=== PATIENT | female | born 1980 | race Caucasian/White ===

== ENCOUNTER 2021-05-13 10:14 | Emergency (ER) | payer OTHER, SELFPAY ==
--- NOTE | ~2021-05-13 | XR_ITS ---
EXAMINATION: XR HIP, LEFT CLINICAL INFORMATION: Fall. Pain. COMPARISON: None TECHNIQUE: Two views of the left hip and one view of the pelvis. FINDINGS: Bone alignment is normal. No fracture or dislocation is seen. The hip joints are normal. Bones of the pelvis are normal. Soft tissues are normal. XR/XR hip LT w [id number] IMPRESSION: Normal left hip.
--- NOTE | ~2021-05-13 | XR_ITS ---
EXAMINATION: XR SHOULDER, LEFT CLINICAL INFORMATION: Fall, trauma, pain COMPARISON: None TECHNIQUE: Left shoulder is imaged in 3 views. FINDINGS: There is a nondisplaced fracture involving the greater tuberosity proximal humerus, possibly comminuted. There is no distraction or displacement. No dislocation. The remainder of the bony structures appear intact. The acromioclavicular alignment is normal. The glenohumeral joint is unremarkable. No visible rotator cuff calcifications. Left lung apex is clear. No pneumothorax or pleural reaction. XR/XR shoulder LT min 2V IMPRESSION: Nondisplaced fracture involving the greater tuberosity proximal humerus, possibly comminuted.
--- NOTE | ~2021-05-13 | XR_ITS ---
EXAMINATION: LEFT ANKLE AND LEFT FOOT X-RAYS CLINICAL INFORMATION: Pain and swelling after fall COMPARISON: None TECHNIQUE: 3 views of the left foot and 3 views of the left ankle FINDINGS: Left foot: Bone alignment is normal. No fracture or dislocation is seen. Joint spaces are normal. Soft tissues are normal. Left ankle: Bone alignment is normal. No fracture or dislocation is seen. The ankle mortise is normal. There is lateral soft tissue swelling. XR/XR foot LT min 3V IMPRESSION: No fracture or dislocation seen. Lateral soft tissue swelling over the ankle.
--- NOTE | ~2021-05-13 | XR_ITS ---
EXAMINATION: LEFT ANKLE AND LEFT FOOT X-RAYS CLINICAL INFORMATION: Pain and swelling after fall COMPARISON: None TECHNIQUE: 3 views of the left foot and 3 views of the left ankle FINDINGS: Left foot: Bone alignment is normal. No fracture or dislocation is seen. Joint spaces are normal. Soft tissues are normal. Left ankle: Bone alignment is normal. No fracture or dislocation is seen. The ankle mortise is normal. There is lateral soft tissue swelling. XR/XR ankle LT min 3V IMPRESSION: No fracture or dislocation seen. Lateral soft tissue swelling over the ankle.
--- NOTE | 2021-05-13 11:45 | ED.FALL ---
HPI - Fall General Chief Complaint: Fall <CECI Currie - Last Filed: 05/13/21 11:49> Stated Complaint: l ankle and arm inj fall <CECI Currie - Last Filed: 05/13/21 11:49> Time Seen by Provider: 05/13/21 11:45 <CECI Currie - Last Filed: 05/13/21 11:49> Source: patient <Lana Pierce DO - Last Filed: 05/13/21 14:01> Mode of arrival: ambulatory <Lana Pierce DO - Last Filed: 05/13/21 14:01> Limitations: no limitations <Lana Pierce DO - Last Filed: 05/13/21 14:01> History of Present Illness MD complaint: fall <Lana Pierce DO - Last Filed: 05/13/21 14:01> Onset (ago): minute(s) (prior to arrival) <Lana Pierce DO - Last Filed: 05/13/21 14:01> Fall from: standing <Lana Pierce DO - Last Filed: 05/13/21 14:01> Fall witnessed: yes, by family <Lana Pierce DO - Last Filed: 05/13/21 14:01> Place fall occurred: home <Lana Pierce DO - Last Filed: 05/13/21 14:01> Loss of consciousness: none <Lana Pierce DO - Last Filed: 05/13/21 14:01> Prolonged down time: no <Lana Pierce DO - Last Filed: 05/13/21 14:01> Symptoms prior to fall: other (stood up and had been sitting her left foot was asleep and she fell) <Lana Pierce DO - Last Filed: 05/13/21 14:01> Context: tripped/slipped (let arm caught on counter) <Lana Pierce DO - Last Filed: 05/13/21 14:01> Location of injury - extremities: left: shoulder (dominant hand) and ankle <Lana Pierce DO - Last Filed: 05/13/21 14:01> Severity: moderate <Lana Pierce DO - Last Filed: 05/13/21 14:01> Quality: aching and throbbing <DO Beatrice Hough Last Filed: 05/13/21 14:01> Associated symptoms (after fall): other (shoulder pain and l ankle pain) <DO Beatrice Hough Last Filed: 05/13/21 14:01> Related Data Home Medications: Previous Rx's Medication Instructions Recorded cyclobenzaprine 10 mg tablet 10 mg PO TID PRN #14 tab 05/13/21 ibuprofen 600 mg tablet 600 mg PO Q6H PRN #30 tab 05/13/21 lidocaine 4 % topical patch 1 patch TOPICAL DAILY PRN #10 ea 05/13/21 <CECI Currie Last Filed: 05/13/21 11:49> Allergies/Adverse Reactions: Allergies Allergy/AdvReac Type Severity Reaction Status Date / Time Sulfa (Sulfonamide Allergy Unknown UNKNOWN Unverified 02/09/20 15:35 Antibiotics) peach AdvReac Unknown UNKNOWN Unverified 02/09/20 15:35 plum AdvReac Unknown UNKNOWN Unverified 02/09/20 15:35 strawberry AdvReac Unknown UNKNOWN Unverified 02/09/20 15:35 raw fruits and veg Allergy Unknown hives Uncoded 09/20/19 00:00 tree nuts, tree and pit Allergy Unknown hives Uncoded 09/20/19 00:00 fruits <CECI uCrrie Last Filed: 05/13/21 11:49> Review of Systems Review of Systems: Constitutional : No Fever, No Chills ENT/Mouth : No Ear Pain, No Hoarseness, No sore throat Eyes: No Eye Pain, No Swelling, No Redness, No Foreign Body Cardiovascular : No Chest Pain, No SOB Respiratory : No Cough, No Dyspnea Gastrointestinal : No Nausea, No Vomiting, No Diarrhea, No abdominal Pain Genitourinary : No Dysuria, No Hematuria Musculoskeletal : positive joint pain, No Myalgias, No Joint Swelling Skin : No Skin lacerations, No rash Neuro : No Weakness, No Numbness, No Loss of Consciousness, No Dizziness, No Headache Psych : No Anxiety/Panic, No Depression Heme/Lymph: no easy bruising, no Lymphadenopathy Endocrine : No Polyuria, No Polydipsia All other systems reviewed and are negative <DO Beatrice Hough Last Filed: 05/13/21 14:01> [facility] Past Medical History Medical History: Medical History Umbilical hernia <CECI Currie - Last Filed: 05/13/21 11:49> Social History Social History: Social History (Updated 05/13/21 @ 13:03 by Lana Pierce DO) Patient Tobacco Use Status: Never used Tobacco Advance Directives: No Advance Directives Information Provided: No <CECI Currie - Last Filed: 05/13/21 11:49> Physical Exam Vital Signs: Vital Signs: Last Vital Signs Temp 98.0 F 05/13/21 11:47 Pulse 79 05/13/21 11:47 Resp 18 05/13/21 11:47 BP 153/89 H 05/13/21 11:47 Pulse Ox 99 05/13/21 11:47 BMI result Body Mass Index 39.5 <CECI Currie - Last Filed: 05/13/21 11:49> Vital Signs: Last Vital Signs Temp 98.0 F 05/13/21 11:47 Pulse 79 05/13/21 11:47 Resp 18 05/13/21 11:47 BP 153/89 H 05/13/21 11:47 Pulse Ox 99 05/13/21 11:47 BMI result Body Mass Index 39.5 <Lana Pierce DO - Last Filed: 05/13/21 14:01> Appearance: Alert. Oriented X3. No acute distress. Eyes: Pupils equal, round and reactive to light. ENT: Pharynx normal. Neck: Normal inspection. Neck supple. CVS: Normal heart rate and rhythm. Pulses normal. no chest wall ttp Respiratory: No respiratory distress. Breath sounds normal. Abdomen: Soft and nontender. Back: no midline ttp Skin: Skin warm and dry. Normal skin color. Normal skin turgor. Extremities: No lower extremity edema. mild swelling and ttp along L ankle lateral malleolus, ttp along L shoulder humeral head - distal NV Intact, contusion anterior L forearm but full ROM of hand and wrist - bounding radial puse Neuro: Oriented X 3. No motor deficit. No sensory deficit. <Lana Pierce DO - Last Filed: 05/13/21 14:01> Course Course Course Narrative: 11:45am - Quick assessment. 40-year-old female presenting to the ED with complaints of left shoulder/left hip/left ankle and foot pain after she had a mechanical fall this morning prior to arrival. She was sitting down and her son who is 2 years old locked himself in the room therefore she got up from her chair although did not realize that her leg was asleep from sitting on it for too long and she fell right on her left side and injured her left shoulder/hip/ankle and foot. Reports pain 6/10. Denies head injury loss of consciousness. Denies being on any blood thinners. Denies any other injuries complaints or concerns at this time. On exam patient is alert and oriented x3. Not in any acute distress. Vital signs are stable within normal limits. No focal neuro deficits are noted. At this time x-ray of left shoulder/left hip/left ankle and foot ordered and patient will be sent back to the waiting room and further evaluation emergency minor care. Patient understands agrees with this plan. <Mary Rice PA - Last Filed: 05/13/21 11:49> Procedures Orthopedic Splinting/Casting Injury #1: Side: left <Lana Pierce DO - Last Filed: 05/13/21 14:01> Upper Extremity Injury Location: shoulder <Lana Pierce DO - Last Filed: 05/13/21 14:01> Upper Extremity Immobilizer: sling/shoulder immobilizer <Lana Pierce DO - Last Filed: 05/13/21 14:01> Injury #2: Side: left <Lana Pierce DO - Last Filed: 05/13/21 14:01> Lower Extremity Injury Location: ankle <Lana Pierce DO - Last Filed: 05/13/21 14:01> Lower Extremity Immobilizer: AirCast <Lana Pierce DO - Last Filed: 05/13/21 14:01> MDM - Fall MDM Narrative Medical decision making narrative: 40 yo female mechanical fall reports pain to L shoulder and L ankle all other exam normal - at this time xrays and pain control ordered, sling - NV intact. No AC therapy, no head or neck pain. Dispo per resutls and findings. <Lana Pierce DO - Last Filed: 05/13/21 14:01> Discharge Plan Discharge Clinical Impression: Ankle sprain Qualifiers: Encounter type: initial encounter Involved ligament of ankle: unspecified ligament Laterality: left Qualified Code(s): S93.402A - Sprain of unspecified ligament of left ankle, initial encounter Fracture of head of humerus Qualifiers: Encounter type: initial encounter Fracture type: closed Laterality: left Qualified Code(s): S42.292A - Other displaced fracture of upper end of left humerus, initial encounter for closed fracture <CECI Currie Last Filed: 05/13/21 11:49> Patient Disposition: Home, Self-Care <CECI Currie Last Filed: 05/13/21 11:49> Instructions: Ankle Sprain (ED), Arm Fracture in Adults (ED), Ankle Stirrup Splint (ED), Shoulder Immobilizer (ED) <CECI Currie Last Filed: 05/13/21 11:49> Additional Instructions: return to ED for any worsening symptoms or concerns sling until cleared okay to take off for showers but limit movement ankle splint for 5 days Nondisplaced fracture involving the greater tuberosity proximal humerus, possibly comminuted. <CECI Currie - Last Filed: 05/13/21 11:49> Prescriptions: New cyclobenzaprine 10 mg tablet 10 mg PO TID PRN (Reason: muscle spasm) Qty: 14 RF: 0 lidocaine 4 % adhesive patch,medicated 1 patch topical DAILY PRN (Reason: pain) Qty: 10 RF: 0 ibuprofen 600 mg tablet 600 mg PO Q6H PRN (Reason: pain) Qty: 30 RF: 0 <CECI Currie Last Filed: 05/13/21 11:49> Referrals: Sade Wu PA-C [Physician Temperer] - 1 week <CECI Currie Last Filed: 05/13/21 11:49> Stand Alone Forms: Work/School Release <CECI Currie Last Filed: 05/13/21 11:49>
[2021-05-13 11:47] VITALS: BP 153/89; PULSE 79; RESP 18; TEMP 36.7; O2SAT 99; BMI 39.5
[2021-05-13] MEDS: Cyclobenzaprine HCl 10 MG TABLET PO (13:10)
[2021-05-13] MEDS: Lidocaine 4 % Patch ADH..PATCH 1 PATCH TRANSDERMA (13:11)
== END 2021-05-13 14:57 | disposition home or self-care (01) ==
PROVIDERS: Emergency Provider Emergency Medicine; PCP Family Medicine
DX: S42.292A Other displaced fracture of upper end of left humerus, initial encounter for closed fracture (principal); S93.402A Sprain of unspecified ligament of left ankle, initial encounter; W01.190A Fall on same level from slipping, tripping and stumbling with subsequent striking against furniture, initial encounter; Y93.89 Activity, other specified; Y92.019 Unspecified place in single-family (private) house as the place of occurrence of the external cause; Y99.9 Unspecified external cause status
CPT/HCPCS: 73030; 73502; 73610; 73630; 99283; 99284

== ENCOUNTER 2021-06-03 07:05 | Outpatient (REF) | payer OTHER, SELFPAY ==
--- NOTE | ~2021-06-03 | XR_ITS ---
EXAMINATION: XR SHOULDER, LEFT CLINICAL INFORMATION: Pain. COMPARISON: Left shoulder radiograph dated from 05/13/2021. TECHNIQUE: Two views of the left shoulder. FINDINGS: Redemonstration of a essentially nondisplaced fracture involving the greater tuberosity of the left humerus with some degree of osseous bridging and callus formation. No new fractures. Coracoclavicular joint is intact. XR/XR shoulder LT min 2V IMPRESSION: Mild interval healing of a proximal greater tuberosity humeral fracture. No new injuries.
== END 2021-06-03 07:06 | disposition home or self-care (01) ==
LOC: HO.HOSX 07:05
PROVIDERS: Visit Provider Physician Assistant
DX: S42.252A Displaced fracture of greater tuberosity of left humerus, initial encounter for closed fracture (principal)
CPT/HCPCS: 73030

== ENCOUNTER 2021-06-10 10:28 | Outpatient (REF) | payer OTHER, SELFPAY | END 2021-06-10 10:29 | disposition home or self-care (01) | LOC: HO.MRI 10:28 | PROVIDERS: PCP Family Medicine; Visit Provider Physician Assistant | DX: Z13.89 Encounter for screening for other disorder (principal) ==

== ENCOUNTER 2021-06-24 07:10 | Outpatient (REF) | payer OTHER, SELFPAY ==
--- NOTE | ~2021-06-24 | XR_ITS ---
EXAMINATION: XR SHOULDER, LEFT CLINICAL INFORMATION: Left shoulder pain COMPARISON: None TECHNIQUE: AP external rotation, Grashey, scapular Y, and axillary views of the left shoulder. FINDINGS: There is a subtle lucency involving the left greater tuberosity question contusion or undisplaced fracture. Correlate with clinical exam. There is no glenohumeral dislocation. No other bony abnormality. The soft tissues are normal. XR/XR shoulder LT min 2V IMPRESSION: Subtle vertical lucency through the greater tuberosity is question contusion versus undisplaced fracture. Correlate with clinical exam and any history of trauma. Otherwise unremarkable left shoulder exam.
== END 2021-06-24 07:11 | disposition home or self-care (01) ==
LOC: HO.HOSX 07:10
PROVIDERS: Visit Provider Physician Assistant
DX: S42.252D Displaced fracture of greater tuberosity of left humerus, subsequent encounter for fracture with routine healing (principal)
CPT/HCPCS: 73030

== ENCOUNTER 2021-08-05 08:22 | Outpatient (REF) | payer OTHER, SELFPAY ==
--- NOTE | ~2021-08-05 | XR_ITS ---
EXAMINATION: XR SHOULDER, LEFT CLINICAL INFORMATION: Pain COMPARISON: Previous x-ray May 2021 TECHNIQUE: Three views of the left shoulder. FINDINGS: There is a healing nondisplaced left greater tuberosity fracture. No other fracture is seen. The joint spaces and soft tissues are normal. XR/XR shoulder LT min 2V IMPRESSION: Healing nondisplaced left greater tuberosity fracture.
== END 2021-08-05 08:23 | disposition home or self-care (01) ==
LOC: HO.HOSX 08:22
PROVIDERS: Visit Provider Physician Assistant
DX: S42.252A Displaced fracture of greater tuberosity of left humerus, initial encounter for closed fracture (principal)
CPT/HCPCS: 73030

== ENCOUNTER → 2021-08-30 13:03 | Outpatient (BNVA) | payer OTHER, SELFPAY | PROVIDERS: PCP Family Medicine; Visit Provider Physician Assistant | DX: Z13.89 Encounter for screening for other disorder (principal) ==

== ENCOUNTER 2021-11-27 09:00 | Outpatient (RCR) | payer OTHER, SELFPAY ==
--- NOTE | 2021-06-11 13:15 | MHC.PT.EP ---
[facility] [place] [facility] [place] [facility] [place] [facility] [address] [phone] F: [phone] F: [phone] F: [phone] F: [phone] Physical Therapy Plan of Care Date of Evaluation: Date of Surgery: NA Diagnosis: LEFT GREATER TUBEROSITY FRACTURE Assessment: SUE IS A PLEASANT 40 YO FEMALE WHO PRESENTS S/P LEFT HUMERAL FRACTURE. UPON EXAM SHE DEMONSTRATES DECREASED ROM, DECREASED STRENGTH, ALTERED POSTURE AND POSITIONING, ALTERED SOFT TISSUE MOBILITY AND INCREASED PAIN. FUNCTIONAL LIMITATIONS INCLUDE DECREASED ABILITY TO PERFORM LIFTING, REACHING, PUSHING, PULLING AND CARRYING. SHE REPORTS DECREAED ABILITY TO PERFORM CHILDCARE AND HOMEMAKING TASKS, DECREASED ABILITY TO PERFORM WORK AND RECREATIONAL ACTIVITIES AND DISRUPTED SLEEP. Frequency and Duration: The patient will be seen 2 X WEEK FOR 4 WEEKS Short Term Goals: INITIATE HEP AND PROMOTE SELF MANAGEMENT OF SYMPTOMS IN 2 WEEKS [employer] Operator Goals: Full, pain free ROM in 8 weeks Full UE strength, pain free in 8 weeks To perform computer and work tasks without restriction and pain no greater than 2/[address] at minimum of 5# into cabinet at shoulder height in 8 weeks Treatment Plan: Modalities to reduce pain, spasms and effusion. Manual therapy to restore motion and function. Therapeutic exercise to improve strength and flexibility. Neuromuscular re-education for posture and balance. Therapeutic activities to return to functional activities of daily living. Electronically signed by: ROBSON ALMEIDA PT, DPT Please sign and return to therapist. Thank you for your referral.
== END 2021-12-26 07:57 | disposition home or self-care (01) ==
LOC: HO.PT 09:00
PROVIDERS: PCP Family Medicine; Visit Provider Physician Assistant
DX: S42.252D Displaced fracture of greater tuberosity of left humerus, subsequent encounter for fracture with routine healing (principal)
CPT/HCPCS: 97110; 97140; 97161; 97164; 97530